=== PATIENT | female | born 1995 | race Caucasian/White ===

== ENCOUNTER 2021-03-07 18:57 | Emergency (ER) | payer OTHER, MEDICAID, SELFPAY ==
[2021-03-07 18:56] VITALS: BP 118/65; PULSE 120; RESP 16; TEMP 37.3; O2SAT 98; BMI 27.4
--- NOTE | 2021-03-07 19:14 | ED_ITS ---
HPI - General Adult General Chief complaint: Toxicology Problem Stated complaint: Found walking in street,pt using meth Time Seen by Provider: 03/07/21 19:00 Source: patient and EMS Mode of arrival: EMS Limitations: no limitations History of Present Illness HPI narrative: Patient is a 25-year-old female who is brought in by EMS after they were called by the police because the patient was found walking down the street. According to EMS they were told by police that the patient had admitted to using methamphetamine. EMS reports that she was agitated upon their arrival and so she did receive Valium prior to arrival. Upon arrival here to the emergency department she was very calm. When I initially went in to evaluate her she was sleeping in the bed so my complete evaluation occurred after she had been here in the emergency department for period of time. When I saw that she was awake and went back in and talk with her. She knew that she was in the hospital. She denied using methamphetamine to me. She denied any other drugs. Denied any alcohol. She states that she was trying to get away from ?my baby daddy ?she would not say exactly why she was doing this. She stated that she would like to go home. Review of Systems Constitutional Constitutional: Reports system reviewed and no additional complaints, except as documented Cardiovascular Cardiovascular: Reports system reviewed and no additional complaints, except as documented Respiratory Respiratory: Reports system reviewed and no additional complaints, except as documented Gastrointestinal Gastrointestinal: Reports system reviewed and no additional complaints, except as documented Genitourinary Genitourinary: Reports system reviewed and no additional complaints, except as documented Musculoskeletal Musculoskeletal: Reports system reviewed and no additional complaints, except as documented Integumentary/Breasts Skin/Breast: Reports system reviewed and no additional complaints, except as documented Neurologic Neurologic: Reports system reviewed and no additional complaints, except as documented Endocrine Endocrine: Reports system reviewed and no additional complaints, except as documented Hematologic/Lymphatic On Anticoagulants: No Allergic/Immunologic Allergic/Immunologic: Reports system reviewed and no additional complaints, except as documented Patient History Medical History Patient denies medical problems Social History lives independently: Yes Exam Initial Vital Signs Initial Vital Signs: Vital Signs Temperature 99.1 F 03/07/21 18:56 Pulse Rate 120 H 03/07/21 18:56 Respiratory Rate 16 03/07/21 18:56 Blood Pressure 118/65 03/07/21 18:56 Pulse Oximetry 98 03/07/21 18:56 Const General: cooperative Limitations: mental status not altered (At the time of my evaluation) HENMT Head: normal to inspection and normocephalic Resp Effort & Inspection: normal respiratory effort Cardio Rate: regular rate Skin Lesions: no lesions Rashes: no rashes Neuro General: patient alert, patient awake and patient oriented x3 Cognition: normal cognition Speech: speech normal Extrem General: normal to inspection and capillary refill normal Psych Appearance: grossly normal and well kempt Scores GCS Dania coma scale eye opening: Spontaneous Dania coma scale verbal response: Orientated Dania coma scale motor response: Obey commands Dania coma scale total score: 15 Course Orders Ordered: ED Orders 03/07/21 18:56 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 GCS of 15. Was not clinically intoxicated. She denied using methamphetamine to me. She denied any other drugs or alcohol. She stated that she would like to go home. She was not suicidal. Not homicidal. States she felt safe at home. She would like us to call her father to come and pick her up. Patient does have capacity to make decisions. She was given return precautions. She expressed understanding and agreement. Discharge Plan Departure Patient Disposition: Home Clinical Impression: Mental status change resolved Activity Restrictions/Additional Instructions: Recommend you contact your primary provider for a follow-up. If you do not have a primary doctor you can contact [phone]. Return to the emergency department for any new or worsening symptoms
--- NOTE | 2021-03-07 21:22 | PC.NURSE ---
Medic started 20G RH PIV present and patent upon taking over as primary RN. Removed prior to discharge without complication, catheter intact.
[2021-03-07 21:25] VITALS: BP 113/80; PULSE 94; RESP 18; O2SAT 99
== END 2021-03-07 21:26 | disposition home or self-care (01) ==
PROVIDERS: Emergency Provider Emergency Medicine
DX: Z86.59 Personal history of other mental and behavioral disorders (principal)
CPT/HCPCS: 99281; 99282